=== PATIENT | male | born 1995 | race Caucasian/White ===

== ENCOUNTER 2017-06-20 11:04 | Emergency (ER) | payer OTHER ==
[~2017-06-20] VITALS: Ht 165.1 cm; Wt 54.8 kg
[2017-06-20 11:10] VITALS: Ht 165.1 cm; Wt 54.8 kg
[2017-06-20] MEDS ORDERED: SODIUM CHLORIDE 0.9% 1000ML 1,000 ML IV STA (11:31)
[2017-06-20] MEDS ORDERED: HYDROmorphone INJ 0.5 MG/0.5 ML SYR IV STA (11:49)
[2017-06-20] MEDS ORDERED: METOCLOPRAMIDE HCL INJ 5 MG/ML 2 ML VIAL IV STA (11:49)
[2017-06-20] MEDS ORDERED: DiphenhydrAMINE HCL 50 MG/ML VIAL IV STA (11:49)
[2017-06-20 11:53] LABS: BASO % 0.2 %; BASO ABS # 0.01 K/uL (0-0.2); COMPLETE YES; HEMATOCRIT 46.6 % (42-52); IG% 0.2 %; LYMPH ABS # 0.51 K/uL (1.2-3.4); MEAN CELL VOLUME 90.3 fL (80-100); MEAN CORPUSCULAR HEMOGLOBIN 31.4 pg (25-34); MEAN CORPUSCULAR HGB CONC 34.8 g/dl (32-36); MEAN PLATELET VOLUME 9.3 fL (7.4-10.4); MONO % 4.9 %; NEUT % 86.7 %; PLATELET COUNT 222 K/uL (130-400); RED BLOOD COUNT 5.16 M/uL (4.7-6.1); WHITE BLOOD COUNT 6.38 K/uL (4.8-10.8)
[2017-06-20 12:19] LABS: BUN/CREATININE RATIO 9.2 (10-20); CALCIUM 9.5 mg/dl (8.5-10.1); CREATININE 0.97 mg/dl (0.60-1.40); POTASSIUM 3.8 mmol/L (3.5-5.1)
--- NOTE | 2017-06-20 13:01 | DIAGNOSTIC IMAGING REPORT ---
ABDOMEN 2VIEW W/PA CHEST RTN HISTORY: 21 years-old Male upper abd pain, vomiting acute upper abdominal pain with vomiting COMPARISON: None available TECHNIQUE: Frontal view of the chest with erect and supine views of the abdomen FINDINGS: The cardiomediastinal and hilar silhouettes are within normal limits. There is no pneumothorax, pleural effusion, focal airspace consolidation or overt pulmonary edema. Bones of the chest appear grossly intact. No pneumoperitoneum on the upright projection. There are a few mildly dilated air-filled loops of small bowel within the midabdomen measuring up to 4.0 cm transversely. Minimal air is seen within the region of the cecum. No pneumatosis identified. No organomegaly or urolith. The ribs at T12 are hypoplastic. IMPRESSION: 1. A few mildly dilated air-filled loops of small bowel within the midabdomen measuring up to 4.0 cm transversely suggests focal ileus or developing small bowel obstruction. Follow-up recommended. 2. No pneumoperitoneum or pneumatosis. 3. No acute cardiopulmonary process. The above report was generated using voice recognition software. It may contain grammatical, syntax or spelling errors. Electronically signed by: Ajay Manning M.D. 06/20/2017 1:00 PM Dictated Date/Time: 06/20/2017 12:58 PM
[2017-06-20 13:11] LABS: URINE APPEARANCE CLOUDY (CLEAR); URINE BILIRUBIN NEG (NEG); URINE COLOR YELLOW; URINE NITRITE NEG (NEG); URINE PH 7.5 (4.5-7.5); URINE SPECIFIC GRAVITY 1.025 (1.000-1.030); UROBILINOGEN NEG (NEG); ZZUR CULT IF INDIC CLEAN CATCH NO
[2017-06-20 13:28] LABS: MANUAL MICROSCOPIC REQUIRED? NO; REVIEW REQ? NO; SULFASALICYLIC ACID NEG (NEG)
[2017-06-20] MEDS ORDERED: OPTIRAY 320 IV PRN (14:15)
--- NOTE | 2017-06-20 16:03 | DIAGNOSTIC IMAGING REPORT ---
ABDOMEN AND PELVIS CT WITH IV CONTRAST CT DOSE: 259.80 mGycm HISTORY: Acute generalized abdominal pain with vomiting. Small bowel dilation seen on abdominal radiographs of same day vomiting, abd pain, xray poss SBO TECHNIQUE: Multiaxial CT images of the abdomen and pelvis were performed following the use of intravenous contrast. A dose lowering technique was utilized adhering to the principles of ALARA. COMPARISON STUDY: Acute abdominal series radiographs of same day. FINDINGS: Lung bases are generally clear. No pneumoperitoneum or pneumatosis identified. The imaged inferior cardiac chambers are unremarkable. 5 mm low attenuating lesion of the posterior right hepatic lobe is too small to characterize however suggests hepatic cyst or hemangioma. Liver is otherwise unremarkable. No intrahepatic biliary ductal dilation. The spleen, gallbladder, pancreas and adrenal glands are unremarkable. Bilateral kidneys, ureters and urinary bladder are unremarkable. The aorta is normal in course and caliber. No bulky adenopathy. The previously noted small bowel dilation is no longer appreciated. Multiple air-fluid levels throughout nondilated loops of ileum are noted within the lower abdomen and pelvis. There is nondistention involving the majority of the colon. The appendix is not seen with certainty. No specific secondary signs of acute appendicitis. No significant ascites identified. The soft tissues are unremarkable. The bones appear intact. IMPRESSION: 1. No evidence of bowel obstruction. The previously noted dilated small bowel loops seen on comparison radiographs are not appreciated on this study. 2. Multiple air-fluid levels throughout loops of ileum within the lower abdomen and pelvis suggests enteritis or ileus. 3. Appendix not definitively seen. No specific secondary signs of acute appendicitis. Electronically signed by: Ajay Manning M.D. 06/20/2017 4:02 PM Dictated Date/Time: 06/20/2017 3:57 PM
[2017-06-20] MEDS ORDERED: PROM25TA9 PO (16:52)
[2017-06-20 17:05] VITALS: BP 99/52; PULSE 97; TEMP 37.4; O2SAT 97
--- NOTE | 2017-06-20 18:02 | EMERGENCY ROOM VISIT NOTE ---
History Report prepared by Jorge Alberto: Arely Martinez Under the Supervision of: Dr. Marvel Gill M.D. First contact with patient: 11:31 Chief Complaint: VOMITING Stated Complaint: V,D, HOT/COLD, BLOATING, PAIN History of Present Illness The patient is a 21 year old male who presents to the Emergency Room with complaints of persistent nausea and vomiting that began around 1900 last evening. He currently rates his discomfort as a 7/10 in severity. The patient reports a history of stomach problems, noting a history of Salmonella infection , celiac, hiatal hernia, and gastroparesis. He states that today he is experiencing abdominal pain and diarrhea. The patient states that his symptoms today are similar to his previous episodes. He denies taking any medications prior to arrival. The patient states that he has an allergy to Zofran. He reports a history of an endoscopy. The patient denies any alcohol use over the past month. He denies any drug use. Pt denies LOC, headache, fevers, chills, diaphoresis, visual changes, neck pain, chest pain, breathing difficulties, back pain, melena, hematochezia, urinary symptoms, numbness, weakness, lymphadenopathy, rash, or other complaints. Source of History: patient Onset: 1899 last evening Position: other (global) Symptom Intensity: 7/10 Quality: other (nausea and vomiting) Timing: other (persistent) Associated Symptoms: + abdominal pain, + diarrhea Review of Systems See HPI for pertinent positives and negatives. A total of ten systems were reviewed and were otherwise negative. Past Medical & Surgical Medical Problems: (1) Asthma (2) Celiac disease (3) Gastroparesis (4) Hiatal hernia Family History Gallbladder disease Heart disease Hypertension Social History Smoking Status: Never Smoker Smokeless Tobacco Use: No Alcohol Use: none Marital Status: single Housing Status: lives alone Occupation Status: student Current/Historical Medications Scheduled PRN Promethazine Hcl (Phenergan), 25 MG PO Q6H PRN for Nausea Allergies Coded Allergies: Ondansetron (Verified Adverse Reaction, Unknown, Vomiting, 06/20/17) Physical Exam Vital Signs Date Time Temp Pulse Resp B/P (MAP) Pulse Ox O2 Delivery O2 Flow Rate FiO2 06/20/17 17:05 37.4 97 16 99/52 97 06/20/17 16:12 37.8 88 12 98/53 96 Room Air 06/20/17 14:58 95 16 113/74 96 Room Air 06/20/17 14:00 102 20 95/66 97 Room Air 06/20/17 11:10 37.4 74 17 135/84 96 Room Air Physical Exam GENERAL: Awake, alert, uncomfortable, in no distress HENT: Normocephalic, atraumatic. Oropharynx unremarkable. EYES: Normal conjunctiva. Sclera non-icteric. NECK: Supple. No nuchal rigidity. FROM. No JVD. RESPIRATORY: Clear to auscultation. CARDIAC: Regular rate, normal rhythm. Extremities warm and well perfused. Pulses equal. ABDOMEN: Soft, non-distended. No tenderness to palpation. No rebound or guarding. No masses. RECTAL: Deferred. MUSCULOSKELETAL: Chest examination reveals no tenderness. The back is symmetrical on inspection without obvious abnormality. There is no CVA tenderness to palpation. No joint edema. LOWER EXTREMITIES: Calves are equal size bilaterally and non-tender. No edema. No discoloration. NEURO: Normal sensorium. No sensory or motor deficits noted. SKIN: No rash or jaundice noted. Medical Decision & Procedures ER Provider Diagnostic Interpretation: Radiology results as stated below per my review and radiologist interpretation: ABDOMEN 2VIEW W/PA CHEST RTN HISTORY: 21 years-old Male upper abd pain, vomiting acute upper abdominal pain with vomiting COMPARISON: None available TECHNIQUE: Frontal view of the chest with erect and supine views of the abdomen FINDINGS: The cardiomediastinal and hilar silhouettes are within normal limits. There is no pneumothorax, pleural effusion, focal airspace consolidation or overt pulmonary edema. Bones of the chest appear grossly intact. No pneumoperitoneum on the upright projection. There are a few mildly dilated air-filled loops of small bowel within the midabdomen measuring up to 4.0 cm transversely. Minimal air is seen within the region of the cecum. No pneumatosis identified. No organomegaly or urolith. The ribs at T12 are hypoplastic. IMPRESSION: 1. A few mildly dilated air-filled loops of small bowel within the midabdomen measuring up to 4.0 cm transversely suggests focal ileus or developing small bowel obstruction. Follow-up recommended. 2. No pneumoperitoneum or pneumatosis. 3. No acute cardiopulmonary process. The above report was generated using voice recognition software. It may contain grammatical, syntax or spelling errors. Electronically signed by: Ajay Manning M.D. 06/20/2017 1:00 PM Dictated Date/Time: 06/20/2017 12:58 PM ABDOMEN AND PELVIS CT WITH IV CONTRAST CT DOSE: 259.80 mGycm HISTORY: Acute generalized abdominal pain with vomiting. Small bowel dilation seen on abdominal radiographs of same day vomiting, abd pain, xray poss SBO TECHNIQUE: Multiaxial CT images of the abdomen and pelvis were performed following the use of intravenous contrast. A dose lowering technique was utilized adhering to the principles of ALARA. COMPARISON STUDY: Acute abdominal series radiographs of same day. FINDINGS: Lung bases are generally clear. No pneumoperitoneum or pneumatosis identified. The imaged inferior cardiac chambers are unremarkable. 5 mm low attenuating lesion of the posterior right hepatic lobe is too small to characterize however suggests hepatic cyst or hemangioma. Liver is otherwise unremarkable. No intrahepatic biliary ductal dilation. The spleen, gallbladder, pancreas and adrenal glands are unremarkable. Bilateral kidneys, ureters and urinary bladder are unremarkable. The aorta is normal in course and caliber. No bulky adenopathy. The previously noted small bowel dilation is no longer appreciated. Multiple air-fluid levels throughout nondilated loops of ileum are noted within the lower abdomen and pelvis. There is nondistention involving the majority of the colon. The appendix is not seen with certainty. No specific secondary signs of acute appendicitis. No significant ascites identified. The soft tissues are unremarkable. The bones appear intact. IMPRESSION: 1. No evidence of bowel obstruction. The previously noted dilated small bowel loops seen on comparison radiographs are not appreciated on this study. 2. Multiple air-fluid levels throughout loops of ileum within the lower abdomen and pelvis suggests enteritis or ileus. 3. Appendix not definitively seen. No specific secondary signs of acute appendicitis. Electronically signed by: Ajya Manning M.D. 06/20/2017 4:02 PM Dictated Date/Time: 06/20/2017 3:57 PM Laboratory Results 06/20/17 11:45 Red Blood Count 5.16, Mean Corpuscular Volume 90.3, Mean Corpuscular Hemoglobin 31.4, Mean Corpuscular Hemoglobin Concent 34.8, Mean Platelet Volume 9.3, Neutrophils (%) (Auto) 86.7, Lymphocytes (%) (Auto) 8.0, Monocytes (%) (Auto) 4.9, Eosinophils (%) (Auto) 0.0, Basophils (%) (Auto) 0.2, Neutrophils # (Auto) 5.54, Lymphocytes # (Auto) 0.51, Monocytes # (Auto) 0.31, Eosinophils # (Auto) 0.00, Basophils # (Auto) 0.01 06/20/17 11:45 Test 06/20/17 11:45 06/20/17 12:50 White Blood Count 6.38 K/uL (4.8-10.8) Red Blood Count 5.16 M/uL (4.7-6.1) Hemoglobin 16.2 g/dL (14.0-18.0) Hematocrit 46.6 % (42-52) Mean Corpuscular Volume 90.3 fL (80-100) Mean Corpuscular Hemoglobin 31.4 pg (25-34) Mean Corpuscular Hemoglobin Concent 34.8 g/dl (32-36) Platelet Count 222 K/uL (130-400) Mean Platelet Volume 9.3 fL (7.4-10.4) Neutrophils (%) (Auto) 86.7 % Lymphocytes (%) (Auto) 8.0 % Monocytes (%) (Auto) 4.9 % Eosinophils (%) (Auto) 0.0 % Basophils (%) (Auto) 0.2 % Neutrophils # (Auto) 5.54 K/uL (1.4-6.5) Lymphocytes # (Auto) 0.51 K/uL (1.2-3.4) Monocytes # (Auto) 0.31 K/uL (0.11-0.59) Eosinophils # (Auto) 0.00 K/uL (0-0.5) Basophils # (Auto) 0.01 K/uL (0-0.2) RDW Standard Deviation 44.0 fL (36.4-46.3) RDW Coefficient of Variation 13.3 % (11.5-14.5) Immature Granulocyte % (Auto) 0.2 % Immature Granulocyte # (Auto) 0.01 K/uL (0.00-0.02) Anion Gap 10.0 mmol/L (3-11) Est Creatinine Clear Calc Drug Dose 92.6 ml/min Estimated GFR () 127.9 Estimated GFR (Non- 110.4 BUN/Creatinine Ratio 9.2 (10-20) Calcium Level 9.5 mg/dl (8.5-10.1) Total Bilirubin 0.4 mg/dl (0.2-1) Direct Bilirubin 0.1 mg/dl (0-0.2) Aspartate Amino Transf (AST/SGOT) 16 U/L (15-37) Alanine Aminotransferase (ALT/SGPT) 23 U/L (12-78) Alkaline Phosphatase 78 U/L (45-117) Total Protein 8.5 gm/dl (6.4-8.2) Albumin 5.0 gm/dl (3.4-5.0) Lipase 143 U/L (73-393) Urine Color YELLOW Urine Appearance CLOUDY (CLEAR) Urine pH 7.5 (4.5-7.5) Urine Specific [place] 1.025 (1.000-1.030) Urine Protein NEG (NEG) Urine Glucose (UA) NEG (NEG) Urine Ketones 3+ (NEG) Urine Occult Blood NEG (NEG) Urine Nitrite NEG (NEG) Urine Bilirubin NEG (NEG) Urine Urobilinogen NEG (NEG) Urine Leukocyte Esterase NEG (NEG) Urine WBC (Auto) 1-5 /hpf (0-5) Urine RBC (Auto) 0-4 /hpf (0-4) Urine Hyaline Casts (Auto) 5-10 /lpf (0-5) Urine Epithelial Cells (Auto) 10-20 /lpf (0-5) Urine Bacteria (Auto) NEG (NEG) Laboratory results reviewed by me Medications Administered Medications (Trade) Dose Ordered Sig/Shahnaz Route Start Time Stop Time Status Last Admin Dose Admin Sodium Chloride 1,000 ml @ 999 mls/hr Q1H1M STAT IV 06/20/17 11:31 06/20/17 12:31 DC 06/20/17 11:45 999 MLS/HR Metoclopramide HCl (Reglan Inj) 10 mg NOW STAT IV 06/20/17 11:49 06/20/17 11:52 DC 06/20/17 12:04 10 MG Diphenhydramine HCl (Benadryl Inj) 25 mg NOW STAT IV 06/20/17 11:49 06/20/17 11:52 DC 06/20/17 12:04 25 MG Hydromorphone HCl (Dilaudid Inj) 0.5 mg NOW STAT IV 06/20/17 11:49 06/20/17 11:52 DC 06/20/17 12:04 0.5 MG ED Course 1131: Ordered Sodium Chloride 1000 ml @ 999 mls/hr IV. 1148: The patient was evaluated in room C11B. A complete history and physical exam was performed. 1149: Ordered Dilaudid Inj 0.5 mg IV, Benadryl Inj 25 mg IV, Reglan Inj 10 mg IV. 1430: I reevaluated the patient and he is still experiencing pain. I discussed all the exam findings with him and I discussed the treatment plan. They verbalized complete understanding and agreement. The patient will have a CT scan. 1630: Patient reassessed and is doing well. He has an unremarkable CT scan. His symptoms have resolved. I discussed conservative management. Family will follow-up with gastroenterology back home. Medical Decision Triage Nursing notes reviewed. The patient's presentation and history were concerning for nausea, vomiting and diarrhea. Etiologies such as gastroenteritis, food borne illness, exacerbation of chronic medical issues, infections, obstruction, pancreatitis, appendicitis, diverticulitis, inflammatory bowel disease, GI bleed, biliary pathology, toxicologic as well as others were entertained. The patient was evaluated. He did not have tenderness on examination of his abdomen. He noted actually feeling better with pressure. He had described profuse vomiting and diarrhea. He has a history of multiple GI issues. The patient was given saline hydration. He was treated with Reglan and Benadryl as he is allergic to Zofran. He was also given a small dose of IV Dilaudid. He felt significantly better however his x-rays were concerning. A CT scan was ordered to further differentiate his issues. No bowel obstruction was noted only an ileus. The patient had unremarkable labs. As he was feeling much better and his testing did not reveal any issues that would warrant hospitalization I discussed conservative management. As he has had GI issues for over a year and a half his family is going to consult with GI close to home. I will provide him with prescription Phenergan in case he has any additional nausea. If he worsens in any way he will be back. It is possible that this is an exacerbation of his chronic medical issues or that he has an acute GI illness on top of his long-standing problems. I gave my usual and customary discussion regarding this issue. By the evaluation outlined above other emergent etiologies such as those listed in the differential, as well as others, were deemed relatively unlikely. The patient was educated about the findings as listed above. All questions were answered and the patient was pleased with the treatment. Return instructions were outlined and the patient was discharged in stable condition. Medication Reconcilliation Current Medication List: was personally reviewed by me Impression Primary Impression: Nausea, vomiting, and diarrhea Scribe Attestation The scribe's documentation has been prepared under my direction and personally reviewed by me in its entirety. I confirm that the note above accurately reflects all work, treatment, procedures, and medical decision making performed by me. Departure Information Dispostion Home / Self-Care Prescriptions Promethazine Hcl (Phenergan) 25 Mg Tab 25 MG PO Q6H Y for Nausea, #14 TAB Prov: Marvel Gill MD 06/20/17 Referrals No Doctor, Assigned (PCP) Patient Instructions My [facility]
== END 2017-06-20 17:05 | disposition home or self-care (01) ==
LOC: C.EDB 11:07 → C.EDC 17:05
DX: R11.2 Nausea with vomiting, unspecified (principal); R19.7 Diarrhea, unspecified; J45.909 Unspecified asthma, uncomplicated; K90.0 Celiac disease; Z82.49 Family history of ischemic heart disease and other diseases of the circulatory system